=== PATIENT | female | born 1985 ===

== ENCOUNTER 2018-10-08 03:34 | Emergency (ER) | payer SELFPAY ==
[~2018-10-08] VITALS: Ht 149.9 cm; Wt 60.8 kg
--- OUTSIDE RECORDS SUMMARY | 2018-10-08 03:37 | XMS REPORT | Continuity of Care Document ---
Author Author [employer] Address Unknown Phone Unavailable Care Team Providers Care Switchboard Troubleshooter Name Role Phone [employer] Unavailable Unavailable Problems Problem Status Onset Date Classification Date Reported Comments Source premature rupture of membranes, unspecified as to length of time between rupture and onset of labor, third trimester 03/16/2018 09/21/2018 [facility] Resolved 02/28/2018 Problem 09/21/2018 [facility] SROM Active 02/28/2018 [facility] LABOR Active 03/02/2017 [facility] Atypical squamous cells of undetermined significance on Papanicolaou smear of cervix(Confirmed) Active Problem 07/12/[facility] Other infections with a predominantly sexual mode of transmission complicating childbirth 09/21/2018 [facility] Maternal care for transverse and oblique lie, not applicable or unspecified 09/21/2018 [facility] 34 weeks gestation of 09/21/2018 [facility] Single live 09/21/2018 [facility] Gestational diabetes mellitus in childbirth, unspecified control 09/21/2018 [facility] Anemia of the puerperium 09/21/2018 [facility] Papillomavirus as the cause of diseases classified elsewhere 09/21/2018 [facility] Anogenital warts 09/21/2018 [facility] Diseases of the digestive system complicating , third trimester 09/21/2018 [facility] Encounter for immunization 09/21/2018 [facility] Constipation, unspecified 09/21/2018 [facility] Diseases of the respiratory system complicating childbirth 09/21/2018 [facility] Allergic rhinitis, unspecified 09/21/2018 [facility] Family history of diabetes mellitus 09/21/2018 [facility] Allergic rhinitis Active Problem 09/21/2018 [facility] Anal warts Active Problem 09/21/2018 [facility] BMI 26.0-26.9,adult Active Problem 09/21/2018 [facility] Constipation Active Problem 09/21/2018 [facility] Gestational diabetes Resolved Problem 09/21/2018 [facility] 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 09/21/2018 [facility] rupture of membranes Active Problem 09/21/2018 [facility] Medications Medication Details Route Status Patient Instructions Ordering Provider Order Date Source Acetaminophen 300 MG / Codeine Phosphate 30 MG Oral Tablet 1 tab, PO, Q6H, PRN pain, X 5 day, # 20 tab, 0 Refill(s) No Longer Active 03/03/2018 [facility] ferrous sulfate 325 mg oral enteric coated tablet 325 mg=1 tab, PO, Daily, # 30 tab, 2 Refill(s) Active 03/03/2018 [facility] Docusate Sodium 100 MG Oral Capsule 100 mg=1 cap, PO, BID, PRN Constipation, # 60 cap, 1 Refill(s) Active 03/03/2018 [facility] ibuprofen 600 mg oral tablet 600 mg=1 tab, PO, Q6H, X 10 day, # 40 tab, 0 Refill(s) No Longer Active 03/03/2018 [facility] ferrous sulfate 325 mg, 1 tab, Route: PO, Drug form: ECTAB, Daily, Dosing Weight 64.091, kg, Start date: 03/02/18 9:00:00 HOUSING MANAGER, Duration: 30 day, Stop date: 03/31/18 9:00:00 CSTNotes: Give with food. "Do Not Crush" No Longer Active 03/02/2018 [facility] acetaminophen-hydrocodone 325 mg-5 mg oral tablet 1 tab, Route: PO, Drug Form: TAB, Dosing Weight 64.091, kg, Q4H, PRN Pain Score 4-6, Start date: 03/01/18 18:01:00 HOUSING MANAGER, Duration: 30 day, Stop date: 03/31/18 18:00:00 CSTNotes: (Same as: [place] 325/5) Do not exceed 4gm/day of acetaminophen. No Longer Active 03/02/2018 [facility] acetaminophen-hydrocodone 325 mg-10 mg oral tablet 1 tab, Route: PO, Drug Form: TAB, Dosing Weight 64.091, kg, Q4H, PRN Pain Score 7-10, Start date: 03/01/18 18:01:00 HOUSING MANAGER, Duration: 30 day, Stop date: 03/31/18 18:00:00 CSTNotes: Do not exceed 4gm/day of acetaminophen. (Same as: [place] 325/10) No Longer Active 03/02/2018 [facility] Tylenol 650 mg, 2 tab, Route: PO, Drug form: TAB, Q4H, Dosing Weight 64.091, kg, PRN Other -See Comment, Start date: 03/01/18 18:01:00 HOUSING MANAGER, Duration: 30 day, Stop date: 03/31/18 18:00:00 CSTNotes: Do not exceed 4 gm/day. (Same as: Tylenol) No Longer Active 03/02/2018 [facility] Multivitamins oral tablet 1 tab, Route: PO, Drug Form: TAB, Dosing Weight 64.091, kg, Daily, Start date: 03/01/18 9:00:00 HOUSING MANAGER, Duration: 30 day, Stop date: 03/30/18 9:00:00 HOUSING MANAGER No Longer Active 03/01/2018 [facility] Calcium Chloride 0.0014 MEQ/ML / Potassium Chloride 0.004 MEQ/ML / Sodium Chloride 0.103 MEQ/ML / Sodium Lactate 0.028 MEQ/ML Injectable Solution 500 mL, 500 ml/hr, Infuse Over: 1 hr, Route: IV, 500, Drug form: INJ, ONCE, Priority: STAT, Dosing Weight 64.091 kg, Start date: 03/01/18 1:44:00 HOUSING MANAGER, Stop date: 03/01/18 1:44:00 HOUSING MANAGER Inactive 03/01/2018 [facility] Saline Flush 0.9% 10 ml, Route: IVP, Drug Form: INJ, Dosing Weight 64.091, kg, Q12H, Start date: 02/28/18 21:00:00 HOUSING MANAGER, Duration: 30 day, Stop date: 03/30/18 9:00:00 CSTNotes: (Same as: [place] Posiflush) No Longer Active 03/01/2018 [facility] Meperidine 12.5 mg, 0.25 mL, Route: IVP, Drug form: INJ, ONCE, Dosing Weight 64.091, kg, Start date: 02/28/18 20:13:00 HOUSING MANAGER, Stop date: 02/28/18 20:13:00 CSTNotes: (Same as: Demerol) "Use Precaution in Elderly, Seizure disorders, and Renal impairment" No Longer Active 03/01/2018 [facility] Penicillin G 2,500,000 unit, 50 mL, Route: IVPB, Drug form: INJ, ABXQ4H, Dosing Weight 64.091, kg, Start date: 02/28/18 20:00:00 HOUSING MANAGER, Duration: 30 day, Stop date: 03/30/18 16:00:00 HOUSING MANAGER No Longer Active 03/01/2018 [facility] Ibuprofen 600 mg, 1 tab, Route: PO, Drug form: TAB, Q6Hnow, Dosing Weight 64.091, kg, Start date: 02/28/18 20:00:00 HOUSING MANAGER, Duration: 30 day, Stop date: 03/30/18 12:00:00 CSTNotes: (Same as: Motrin) "Do Not Crush" Take with food. No Longer Active 03/01/2018 [facility] Acetaminophen 325 MG / Hydrocodone Bitartrate 10 MG Oral Tablet 1 tab, Route: PO, Drug Form: TAB, Dosing Weight 64.091, kg, Q4H, PRN Pain Score 7-10, Start date: 02/28/18 19:31:00 HOUSING MANAGER, Duration: 30 day, Stop date: 03/30/18 19:30:00 CSTNotes: Do not exceed 4gm/day of acetaminophen. (Same as: [place] 325/10) Inactive 03/01/2018 [facility] Acetaminophen 325 MG / Hydrocodone Bitartrate 5 MG Oral Tablet 1 tab, Route: PO, Drug Form: TAB, Dosing Weight 64.091, kg, Q4H, PRN Pain Score 4-6, Start date: 02/28/18 19:31:00 HOUSING MANAGER, Duration: 30 day, Stop date: 03/30/18 19:30:00 CSTNotes: (Same as: [place] 325/5) Do not exceed 4gm/day of acetaminophen. Inactive 03/01/2018 [facility] Saline Flush 0.9% 10 ml, Route: IVP, Drug Form: INJ, Dosing Weight 64.091, kg, PRN, PRN Line Flush, Start date: 02/28/18 19:31:00 HOUSING MANAGER, Duration: 30 day, Stop date: 03/30/18 19:30:00 CSTNotes: (Same as: BD Posiflush) No Longer Active 03/01/2018 [facility] zolpidem 5 mg, 1 tab, Route: PO, Drug form: TAB, Bedtime, Dosing Weight 64.091, kg, PRN Insomnia, Start date: 02/28/18 19:31:00 HOUSING MANAGER, Duration: 30 day, Stop date: 03/30/18 19:30:00 CSTNotes: (Same As: Ambien) No Longer Active 03/01/2018 [facility] Docusate 100 mg, 1 cap, Route: PO, Drug form: CAP, BID, Dosing Weight 64.091, kg, PRN Constipation, Start date: 02/28/18 19:31:00 HOUSING MANAGER, Duration: 30 day, Stop date: 03/30/18 19:30:00 CSTNotes: (Same as: Colace) (Do Not Crush) No Longer Active 03/01/2018 [facility] Simethicone 160 mg, 2 tab, Route: PO, Drug form: CHEWTAB, Q8H, Dosing Weight 64.091, kg, PRN Gas, Start date: 02/28/18 19:31:00 HOUSING MANAGER, Duration: 30 day, Stop date: 03/30/18 19:30:00 CSTNotes: (Same as: Mylicon) No Longer Active 03/01/2018 [facility] lanolin topical cream 1 appl, Route: TOP, PRN, Drug form: OINT, PRN Other -See Comment, Start date: 02/28/18 19:31:00 HOUSING MANAGER, Duration: 30 day, Stop date: 03/30/18 19:30:00 HOUSING MANAGER No Longer Active 03/01/2018 [facility] Acetaminophen 650 mg, 2 tab, Route: PO, Drug form: TAB, Q4H, Dosing Weight 64.091, kg, PRN Other -See Comment, Start date: 02/28/18 19:31:00 HOUSING MANAGER, Duration: 30 day, Stop date: 03/30/18 19:30:00 CSTNotes: Do not exceed 4 gm/day. (Same as: Tylenol) Inactive 03/01/2018 [facility] Bisacodyl 15 mg, 3 tab, Route: PO, Drug form: ECTAB, Daily, Dosing Weight 64.091, kg, PRN Other -See Comment, Start date: 02/28/18 19:31:00 HOUSING MANAGER, Duration: 30 day, Stop date: 03/30/18 19:30:00 CSTNotes: (Same As: Dulcolax, Correctol) (Do Not Crush) "Do Not Crush" No Longer Active 03/01/2018 [facility] Oxytocin 30 unit, 500 mL, Rate: 42 ml/hr, Infuse over: 11.9 hr, Dosing Weight 64.091, kg, Route: IV, Total Volume: 500 mL, Start date: 02/28/18 19:31:00 HOUSING MANAGER, Duration: 2 day, Stop date: 03/02/18 19:30:00 HOUSING MANAGER, Replace Every: 11.9 hr No Longer Active 03/01/2018 [facility] Lactated Ringers IV 1,000 mL 1,000 mL, Rate: 100 ml/hr, Infuse over: 10 hr, Route: IV, Dosing Weight 64.091 kg, Total Volume: 1,000, Start date: 02/28/18 19:31:00 HOUSING MANAGER, Duration: 30 day, Stop date: 03/30/18 19:30:00 HOUSING MANAGER, 1.66, m2 No Longer Active 03/01/2018 [facility] azithromycin (ANES) Route: IV, Drug form: INJ, ONCE, Stop date: 02/28/18 19:14:00 HOUSING MANAGER Inactive 03/01/2018 [facility] acetaminophen (ANES) Route: IV, Drug form: INJ, ONCE, Stop date: 02/28/18 19:14:00 HOUSING MANAGER Inactive 03/01/2018 [facility] Pitocin (ANES) + sodium chloride (ANES) 9 mL Route: IVP, Drug form: INJ, ONCE, Stop date: 02/28/18 19:04:00 HOUSING MANAGER Inactive 03/01/2018 [facility] Naloxone 0.4 mg, 1 mL, Route: IVP, Drug form: INJ, ONCALL, Dosing Weight 64.091, kg, Start date: 02/28/18 19:00:00 HOUSING MANAGER, Duration: 24 hr, Stop date: 03/01/18 18:59:00 CSTNotes: Same as Narcan No Longer Active 03/01/2018 [facility] morphine Sulfate (ANES) Route: INTRATHECAL, Drug form: INJ, ONCE, Stop date: 02/28/18 18:49:00 HOUSING MANAGER Inactive 03/01/2018 [facility] fentaNYL (ANES) Route: INTRATHECAL, Drug form: INJ, ONCE, Stop date: 02/28/18 18:49:00 HOUSING MANAGER Inactive 03/01/2018 [facility] bupivacaine (ANES) Route: INTRATHECAL, Drug Form: INJ, ONCE, Stop date: 02/28/18 18:49:00 HOUSING MANAGER Inactive 03/01/2018 [facility] phenylephrine (ANES) Route: IV, Drug form: INJ, ONCE, Stop date: 02/28/18 18:34:00 HOUSING MANAGER Inactive 03/01/2018 [facility] ceFAZolin (ANES) Route: IV, Drug form: INJ, ONCE, Stop date: 02/28/18 18:34:00 HOUSING MANAGER Inactive 03/01/2018 [facility] Pitocin (ANES) 30 unit + Route: IVPB, Drug form: SOLN, Dosing Weight 64.1, kg, Start date: 02/28/18 18:28:00 HOUSING MANAGER, Stop date: 02/28/18 19:28:00 HOUSING MANAGER Inactive 03/01/2018 [facility] metoclopramide (ANES) Route: IV, Drug form: INJ, ONCE, Stop date: 02/28/18 18:14:00 HOUSING MANAGER Inactive 03/01/2018 [facility] famotidine (ANES) Route: IV, Drug form: INJ, ONCE, Stop date: 02/28/18 18:14:00 HOUSING MANAGER Inactive 03/01/2018 [facility] ondansetron (ANES) Route: IV, Drug form: INJ, ONCE, Stop date: 02/28/18 18:14:00 HOUSING MANAGER Inactive 03/01/2018 [facility] sodium citrate (ANES) Route: PO, Drug Form: INJ, ONCE, Stop date: 02/28/18 18:14:00 HOUSING MANAGER Inactive 03/01/2018 [facility] Oxycodone Hydrochloride 5 MG Oral Tablet 5 mg, 1 tab, Route: PO, Drug form: TAB, Q4H, Dosing Weight 64.091, kg, PRN Pain Score 4-6, Start date: 02/28/18 18:09:00 HOUSING MANAGER, Duration: 30 day, Stop date: 03/30/18 18:08:00 CSTNotes: (Same as: Roxicodone) No Longer Active 03/01/2018 [facility] Acetaminophen 1,000 mg, 2 tab, Route: PO, Drug form: TAB, Q6H, Dosing Weight 64.091, kg, Priority: NOW, Start date: 02/28/18 18:09:00 HOUSING MANAGER, Duration: 24 hr, Stop date: 03/01/18 18:00:00 CSTNotes: Max acetaminophen 4000 mg/day (4 gm/day). (Same as: Tylenol Extra Strength) No Longer Active 03/01/2018 [facility] Ketorolac 30 mg, 1 mL, Route: IVP, Drug form: INJ, Q6H, Dosing Weight 64.091, kg, PRN Pain Score 4-6, Start date: 02/28/18 18:09:00 HOUSING MANAGER, Duration: 24 hr, Stop date: 03/01/18 18:08:00 CSTNotes: (Same as:Toradol) IV bolus must be given >15 seconds. Give IM administration slowly and deeply into the muscle. Not for use > 4 days MEDICATION WASTE Product Size: 30 mg Product Wasted: ___ mg No Longer Active 03/01/2018 [facility] Diphenhydramine 12.5 mg, 5 mL, Route: PO, Drug form: LIQ, Q6H, Dosing Weight 64.091, kg, PRN Itching, Start date: 02/28/18 18:09:00 HOUSING MANAGER, Duration: 30 day, Stop date: 03/30/18 18:08:00 CSTNotes: (Same as: Benadryl) No Longer Active 03/01/2018 [facility] Promethazine 6.25 mg, 0.25 mL, Route: IVPB, Drug form: INJ, Q6H, Dosing Weight 64.091, kg, PRN Nausea & Vomiting, Start date: 02/28/18 18:09:00 HOUSING MANAGER, Duration: 24 hr, Stop date: 03/01/18 18:08:00 CSTNotes: Do not give IV push. (Same as: Phenergan) No Longer Active 03/01/2018 [facility] Hydromorphone 0.3 mg, 0.15 mL, Route: IVP, Drug form: INJ, Q4H, Dosing Weight 64.091, kg, PRN Pain Score 7-10, Start date: 02/28/18 18:09:00 HOUSING MANAGER, Duration: 30 day, Stop date: 03/30/18 18:08:00 CSTNotes: Same as Dilaudid No Longer Active 03/01/2018 [facility] Ondansetron 4 mg, 2 mL, Route: IVP, Drug form: INJ, Q6H, Dosing Weight 64.091, kg, PRN Nausea & Vomiting, Start date: 02/28/18 18:09:00 HOUSING MANAGER, Duration: 24 hr, Stop date: 03/01/18 18:08:00 CSTNotes: (Same as: Zofran) MEDICATION WASTE Product Size: 4 mg Product Wasted: ___ mg No Longer Active 03/01/2018 [facility] Lactated Ringers Injection IV (ANES) 1000 mL Route: IV, Total Volume: 1,000, Start date: 02/28/18 17:19:00 HOUSING MANAGER, Stop date: 02/28/18 18:19:00 HOUSING MANAGER Inactive 02/28/2018 [facility] Penicillin G Potassium 9160072 UNT/ML Injectable Solution 5,000,000 unit, Route: IVPB, Drug form: PDR/INJ, ONCALL, Dosing Weight 64.091, kg, Start date: 02/28/18 16:00:00 HOUSING MANAGER, Duration: 30 day, Stop date: 03/30/18 15:59:00 CSTNotes: (Same as: Pfizerpen) MEDICATION WASTE Product Size: 5,000,000 unit Product Wasted: ___ unit Inactive 02/28/2018 [facility] Cefazolin 2 gm, 20 mL, Route: IVPB, Drug form: SOLN, ONCALL, Dosing Weight 64.091, kg, Start date: 02/28/18 16:00:00 HOUSING MANAGER, Duration: 1 doses or times, Stop date: 03/01/18 0:00:00 HOUSING MANAGER, ABX Indication: Surgical P rophylaxisNotes: (Same as Ancef) Inactive 02/28/2018 [facility] Carboprost 250 microgram, 1 mL, Route: IM, Drug form: INJ, ONCALL, Dosing Weight 64.091, kg, Start date: 02/28/18 16:00:00 HOUSING MANAGER, Duration: 30 day, Stop date: 03/30/18 15:59:00 CSTNotes: (Same As: Hemabate) Inactive 02/28/2018 [facility] Misoprostol 1,000 microgram, 5 tab, Route: OR, Drug form: TAB, ONCALL, Dosing Weight 64.091, kg, Start date: 02/28/18 16:00:00 HOUSING MANAGER, Duration: 30 day, Stop date: 03/30/18 15:59:00 CSTNotes: (Same as:Cytotec) Ta ke with food Inactive 02/28/2018 [facility] Methylergonovine 0.2 mg, 1 mL, Route: IM, Drug form: INJ, ONCALL, Dosing Weight 64.091, kg, Start date: 02/28/18 16:00:00 HOUSING MANAGER, Duration: 30 day, Stop date: 03/30/18 15:59:00 CSTNotes: (Same as:Methergine) Inactive 02/28/2018 [facility] Celestone 12 mg, 2 mL, Route: IM, Drug form: INJ, ONCE, Dosing Weight 64.091, kg, Start date: 02/28/18 15:03:00 HOUSING MANAGER, Stop date: 02/28/18 15:03:00 CSTNotes: (betamethasone acetate-sodium phosphate 6 mg/ml INJ) (Same As: Celestone Soluspan) No Longer Active 02/28/2018 [facility] Morphine 2 mg, 0.5 mL, Route: IVP, Drug form: SOLN, Q2H, Dosing Weight 64.091, kg, PRN Pain Score 7-10, Start date: 02/28/18 15:01:00 HOUSING MANAGER, Duration: 30 day, Stop date: 03/30/18 15:00:00 CSTNotes: (Same as:MORPhine Sulfate) Inactive 02/28/2018 [facility] Ondansetron 4 mg, 2 mL, Route: IVP, Drug form: INJ, Q8H, Dosing Weight 64.091, kg, PRN Nausea & Vomiting, Start date: 02/28/18 15:01:00 HOUSING MANAGER, Duration: 30 day, Stop date: 03/30/18 15:00:00 CSTNotes: (Same as: Ethel) MEDICATION WASTE Product Size: 4 mg Product Wasted: ___ mg Inactive 02/28/2018 [facility] Terbutaline 0.25 mg, 0.25 mL, Route: SUB-Q, Drug form: INJ, ONCALL, Dosing Weight 64.091, kg, PRN Other -See Comment, Start date: 02/28/18 15:01:00 HOUSING MANAGER, Duration: 1 doses or times, Stop date: 03/01/18 0:00:00 CSTNotes: DO NOT USE IN TYPING SECRETARY AREA (Same As: Shira) Inactive 02/28/2018 [facility] Oxytocin 30 unit, 500 mL, Rate: 42 ml/hr, Infuse over: 11.9 hr, Dosing Weight 64.091, kg, Route: IV, Total Volume: 500 mL, Start date: 02/28/18 15:01:00 HOUSING MANAGER, Duration: 1 doses or times, Stop date: 03/01/18 2:54:00 HOUSING MANAGER, Replace Every: 11.9 hr Inactive 02/28/2018 [facility] Metoclopramide 10 mg, 2 mL, Route: IVP, Drug form: INJ, Q6H, Dosing Weight 64.091, kg, PRN Nausea & Vomiting, Start date: 02/28/18 15:01:00 HOUSING MANAGER, Duration: 30 day, Stop date: 03/30/18 15:00:00 CSTNotes: (Same as: Reglan) Inactive 02/28/2018 [facility] Citric Acid / sodium citrate 30 mL, Route: PO, Drug Form: SOLN, Dosing Weight 64.091, kg, ONCE, Start date: 02/28/18 15:01:00 HOUSING MANAGER, Stop date: 02/28/18 15:01:00 CSTNotes: (Same As: Clara Finkra-2) Sodium citrate- citric acid (500-334 mg/5 mL): 1 mL contains sodium 1 mEq/mL and bicarbonate 1 mEq/mL Inactive 02/28/2018 [facility] Calcium Chloride 0.0014 MEQ/ML / Potassium Chloride 0.004 MEQ/ML / Sodium Chloride 0.103 MEQ/ML / Sodium Lactate 0.028 MEQ/ML Injectable Solution 1,000 mL, Rate: 125 ml/hr, Infuse over: 8 hr, Route: IV, Dosing Weight 64.091 kg, Total Volume: 1,000, Start date: 02/28/18 15:01:00 HOUSING MANAGER, Duration: 30 day, Stop date: 03/30/18 15:00:00 HOUSING MANAGER, 1.66, m2 Inactive 02/28/2018 [facility] Metformin PO, 0 Refill(s) No Longer Active 02/28/2018 [facility] omeprazole 20 mg oral delayed release capsule 20 mg=1 cap, PO, Daily, # 30 cap, 1 Refill(s), Pharmacy: [facility], dispense 40 mg if that's what covered Active 07/24/2017 [facility] albuterol 90 mcg/inh inhalation aerosol 2 puff, INHALATION, QID, # 1 ea, 2 Refill(s), Pharmacy: [facility], dispense covered brand Active 07/24/2017 [facility] 168 HR Ethinyl Estradiol 0.52844 MG/HR / norelgestromin 0.49903 MG/HR Transdermal Patch [Xulane] See Instructions, apply a new patch weekly for 3 weeks, remove for 1 week, then repeat cycle, # 3 ea, 3 Refill(s), Pharmacy: [facility] Active 07/08/2017 [facility] Allergies, Adverse Reactions, Alerts Substance Category Reaction Severity Reaction type Status Date Reported Comments Source No Known Medication Allergies Assertion Drug allergy [facility] Immunizations Immunization Date Given Site Status Last Updated Comments Source diphtheria/pertussis, acel/tetanus adult 03/02/2018 Right deltoid completed Jeffrey [facility] Results Order Name Results Value Reference Range Date Interpretation Comments Source HEMATOLOGY Hgb 9.9 12.0 - 16.0 03/01/2018 [facility] HEMATOLOGY Hct 28.7 36.0 - 48.0 03/01/2018 [facility] BLOOD BANK RESULTS ABO/Rh O POS 02/28/2018 [facility] BLOOD BANK RESULTS Antibody Scrn Negative (02/28/18 3:13 PM) 02/28/2018 [facility] HEMATOLOGY Eosinophils 0.4 0.0 - 4.0 02/28/2018 [facility] HEMATOLOGY Basophils 0.3 0.0 - 1.0 02/28/2018 [facility] HEMATOLOGY Lymphocytes 23.4 20.0 - 40.0 02/28/2018 [facility] HEMATOLOGY Segs 67.1 45.0 - 75.0 02/28/2018 [facility] HEMATOLOGY Monocytes 8.8 2.0 - 12.0 02/28/2018 [facility] HEMATOLOGY Monocytes # 0.8 0.0 - 0.8 02/28/2018 [facility] HEMATOLOGY Lymphocytes # 2.1 1.0 - 5.5 02/28/2018 [facility] HEMATOLOGY Neutrophils # 6.1 1.5 - 8.1 02/28/2018 [facility] HEMATOLOGY MPV 9.3 7.4 - 10.4 02/28/2018 [facility] HEMATOLOGY MCV 91.6 80.0 - 98.0 02/28/2018 [facility] HEMATOLOGY Platelet 237 133 - 450 02/28/2018 [facility] HEMATOLOGY MCHC 34.2 32.0 - 36.0 02/28/2018 [facility] HEMATOLOGY MCH 31.4 27.0 - 31.0 02/28/2018 [facility] HEMATOLOGY Hct 34.2 36.0 - 48.0 02/28/2018 [facility] HEMATOLOGY Hgb 11.7 12.0 - 16.0 02/28/2018 [facility] HEMATOLOGY WBC 9.1 3.7 - 10.4 02/28/2018 [facility] HEMATOLOGY RBC 3.74 4.20 - 5.40 02/28/2018 [facility] HEMATOLOGY RDW 13.1 11.5 - 14.5 02/28/2018 [facility] IMMUNOLOGY Hep Bs Ag Negative *NA* (02/28/18 3:13 PM) Negative 02/28/2018 [facility] IMMUNOLOGY HIV. Negative *NA* (02/28/18 3:13 PM) Negative 02/28/2018 [facility] IMMUNOLOGY Treponemal Ab Non-Reactive *NA* (02/28/18 3:13 PM) Non 02/28/2018 [facility] Pathology Reports No Data Provided for This Section Diagnostic Reports No Data Provided for This Section Consultation Notes No Data Provided for This Section Discharge Summaries No Data Provided for This Section History and Physicals No Data Provided for This Section Vital Signs Vital Sign Value Date Comments Source Systolic (mm Hg) 102 03/04/2018 [facility] Diastolic (mm Hg) 68 03/04/2018 [facility] Heart Rate 93 03/04/2018 [facility] Respitory Rate 18 03/04/2018 [facility] Temperature Oral (F) 98.2 F 03/04/2018 [facility] Heart Rate 96 03/04/2018 [facility] Respitory Rate 20 03/04/2018 [facility] Systolic (mm Hg) 114 03/04/2018 [facility] Diastolic (mm Hg) 73 03/04/2018 [facility] Temperature Oral (F) 99.3 F 03/04/2018 [facility] Systolic (mm Hg) 108 03/03/2018 [facility] Diastolic (mm Hg) 70 03/03/2018 [facility] Temperature Oral (F) 98.3 F 03/03/2018 [facility] Heart Rate 88 03/03/2018 [facility] Respitory Rate 18 03/03/2018 [facility] Height 149.86 cm 02/28/2018 [facility] Weight 64.091 02/28/2018 [facility] BMI Calculated 28.54 02/28/2018 [facility] BMI Calculated 28.54 02/28/2018 [facility] Height 149.86 cm 02/28/2018 [facility] Weight 64.091 02/28/2018 [facility] Weight 62.273 07/24/2017 [facility] BMI Calculated 27.73 07/24/2017 [facility] Systolic (mm Hg) 117 07/24/2017 [facility] Diastolic (mm Hg) 77 07/24/2017 [facility] Heart Rate 98 07/24/2017 [facility] Respitory Rate 14 07/24/2017 [facility] Temperature Oral (F) 98.0 F 07/24/2017 [facility] Height 149.86 cm 07/24/2017 [facility] Encounters Location Location Details Encounter Type Encounter Number Reason For Visit Attending Provider ADM Date DC Date Status Source Outpatient [id number] CULLEN SHAH 08/15/2016 Active [facility] Outpatient [id number] CULLEN SHAH 09/11/2016 Active [facility] Outpatient [id number] CULLEN SHAH 10/06/2016 Active [facility] Outpatient [id number] CULLEN CASTILLOH 12/19/2016 [facility] Phone Message [id number] 07/08/2017 07/10/2017 [facility] Outpatient [id number] CULLEN CASTILLOH 07/24/2017 [facility] Outpatient [id number] Cullen Castilloh 07/24/2017 07/25/2017 [facility] Inpatient [id number] Cora Crisostomo 02/28/2018 03/04/2018 [facility] Procedures Procedure Code Date Perfomer Comments Source Cervical cytology screening [id number] 11/01/2015 [facility] Cervical cytology screening [id number] 11/01/2015 [facility] Assessment and Plan Assessment and Plan Date Source Extracted from:Title: OB Progress Note Author: Jeanine Hodges MD Date: 03/04/18 Impression and Plan Diagnosis Transverse or oblique presentation, delivered (FGX97-HL O32.2XX0, Working, Medical). premature rupture of membranes (PPROM) delivered, current hospitalization (USJ47-SW O42.919, Working, Medical). Diabetes mellitus, gestational (CWY33-TQ O24.419, Working, Medical). Delivery by section for breech presentation (WFD66-KG O32.1XX0, Working, Medical). 34 weeks gestation of (NUU88-UY Z3A.34, Working, Medical). Condition: Stable. Plan 1. /postop state: - Continue routine /postop care - Encourage breast feed/pump Q2-3 hours - continue regular diet, PO pain meds today - encourage ambulation 2. Anemia - continue PO iron with stool softener 3. A2DM - 2hr GTT at 6-8 weeks Discharge to home today, follow up in office in 1-2 weeks. Extracted from:Title: OB C/S Delivery Procedure Summary transverse, atony Author: Aminata Wright MD Date: 02/28/18 Impression and Plan Diagnosis Transverse or oblique presentation, delivered (XTF47-PV O32.2XX0, Working, Medical). premature rupture of membranes (PPROM) delivered, current hospitalization (RVV44-WH O42.919, Working, Medical). 34 weeks gestation of (GTE06-AY Z3A.34, Working, Medical). Diabetes mellitus, gestational (KXG75-HN O24.419, Working, Medical). Delivery by section for breech presentation (QFL28-SD O32.1XX0, Working, Medical). disposition: Well baby nursery. Maternal condition: Stable. Course: Progressing as expected. 03/04/2018 [facility] Plan of Care No Data Provided for This Section Social History Social History Date Source Social History TypeResponse Substance Abuse Use: None. Sexual Sexually active: Yes. Exercise Exercise duration: 0. Employment/School Status: Employed. 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 Employment/School Status: Employed. 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 Alcohol Current, Frequency: 1-2 times per month. Smoking Status Never smoker; Exposure to Tobacco Smoke None; Cigarette Smoking Last 365 Days No; Reg Smoking Cessation Counseling No entered on: 07/24/17 12/19/2016 [facility] Family History No Data Provided for This Section Advance Directives No Data Provided for This Section Functional Status No Data Provided for This Section
--- OUTSIDE RECORDS SUMMARY | 2018-10-08 03:37 | XMS REPORT | Summary of Care ---
Author Author [facility] Primary Care [facility] Organization [facility] Address Unknown Phone Unavailable Encounter HQ Edwinntr_beto(FIN) [id number] Date(s): 07/08/17 - 07/09/17 [facility] [address], [address] [place] [address]- [phone] Vital Signs No data available for this section Problem List Condition Effective Dates Status Health Status Informant Allergic Active rhinitis(Confirmed) Anal Active warts(Confirmed) Atypical squamous Active cells of undetermined significance (ASCUS) on Papanicolaou smear of cervix(Confirmed) BMI Active 26.0-26.9,adult(Conf irmed) Constipation(Confirm Active ed) 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) Allergies, Adverse Reactions, Alerts Substance Reaction Severity Status NKDA Active Medications Xulane 150 mcg-35 mcg/24 hr transdermal film, extended release See Instructions, apply a new patch weekly for 3 weeks, remove for 1 week, then repeat cycle, # 3 ea, 3 Refill(s), Pharmacy: [facility] Start Date: 07/08/17 Status: Ordered Results No data available for this section Immunizations No data available for this section Procedures Procedure Date Related Diagnosis Body Site Status Cervical cytology screening 11/2015 Completed Social History Social History Type Response Exercise Exercise duration: 0. Employment/School Status: Employed. 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 Alcohol Current, Frequency: 1-2 times per month. Smoking Status Never smoker; Exposure to Tobacco Smoke None; Cigarette Smoking Last 365 Days No; Reg Smoking Cessation Counseling No entered on: 12/19/16 Assessment and Plan No data available for this section
--- OUTSIDE RECORDS SUMMARY | 2018-10-08 03:37 | XMS REPORT | Summary of Care ---
Author Author [facility] Primary Care [facility] Organization [facility] Address Unknown Phone Unavailable Encounter HQ Edwinntr_beto(FIN) [id number] Date(s): 07/08/17 - 07/09/17 [facility] [address], [address] [place] [address]- [phone] Vital Signs No data available for this [...] duration: 0. Employment/School Status: Employed. 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 Alcohol Current, Frequency: 1-2 times per month. Smoking Status Never smoker; Exposure to Tobacco Smoke None; Cigarette Smoking Last 365 Days No; Reg Smoking Cessation Counseling No entered on: 12/19/16 Assessment and Plan No data available for this section
--- OUTSIDE RECORDS SUMMARY | 2018-10-08 03:37 | XMS REPORT | Summary of Care ---
Author Author [facility] Organization [facility] Address Unknown Phone Unavailable Encounter KENDY Rasmussen(KACEY) [id number] Date(s): 07/24/17 - 07/24/17 [facility] [address], [address] [place] [address]- [phone] Discharge Disposition: Home or Self Care Attending Physician: Berta Guevara DO Vital Signs Most recent to 1 oldest [Reference Range]: Height 149.86 cm (07/24/17 4:32 PM) Temperature Oral 98.0 DegF [96.4-99.1 DegF] (07/24/17 4:32 PM) Blood Pressure 117/77 mmHg [90-140/60-90 mmHg] (07/24/17 4:32 PM) Respiratory Rate 14 BRMIN [14-20 BRMIN] (07/24/17 4:32 PM) Peripheral Pulse 98 bpm Rate [60-100 bpm] (07/24/17 4:32 PM) Weight 62.273 kg (07/24/17 4:32 PM) Body Mass Index 27.73 m2 (07/24/17 4:32 PM) Problem List Condition Effective Dates Status Health Status Informant Allergic Active rhinitis(Confirmed) Anal Active warts(Confirmed) BMI Active 26.0-26.9,adult(Conf irmed) Constipation(Confirm Active ed) 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) Allergies, Adverse Reactions, Alerts Substance Reaction Severity Status NKDA Active Medications albuterol 90 mcg/inh inhalation aerosol 2 puff, INHALATION, QID, # 1 ea, 2 Refill(s), Pharmacy: [facility] ruben Kay ispense covered brand Start Date: 07/24/17 Status: Ordered omeprazole 20 mg oral delayed release capsule 20 mg=1 cap, PO, Daily, # 30 cap, 1 Refill(s), Pharmacy: [facility] Rahul, dispense 40 mg if that's what covered Start Date: 07/24/17 Status: Ordered Results No data available for this section Immunizations No data available for this section Procedures Procedure Date Related Diagnosis Body Site Status Cervical cytology screening 11/2015 Completed Social History Social History Type Response Exercise Exercise duration: 0. Employment/School Status: Employed. 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 Alcohol Current, Frequency: 1-2 times per month. Smoking Status Never smoker; Exposure to Tobacco Smoke None; Cigarette Smoking Last 365 Days No; Reg Smoking Cessation Counseling No entered on: 07/24/17 Assessment and Plan No data available for this section
--- OUTSIDE RECORDS SUMMARY | 2018-10-08 03:37 | XMS REPORT | Summary of Care ---
Author Author [facility] Organization [facility] Address Unknown Phone Unavailable Encounter KENDY Tong) [phone] Date(s): 02/28/18 - 03/04/18 [facility] [address] [facility] provided by [facility] [place] [address]- Encounter Diagnosis premature rupture of membranes, unspecified as to length of time between rupture and onset of labor, third trimester (Final) - 03/15/18 Other infections with a predominantly sexual mode of transmission complicating c [place] (Final) - Maternal care for transverse and oblique lie, not applicable or unspecified (Final) - 34 weeks gestation of (Final) - Single live (Final) - Gestational diabetes mellitus in childbirth, unspecified control (Final) - Anemia of the puerperium (Final) - Papillomavirus as the cause of diseases classified elsewhere (Final) - Anogenital (venereal) warts (Final) - Diseases of the digestive system complicating , third trimester (Final) - Encounter for immunization (Final) - Constipation, unspecified (Final) - Diseases of the respiratory system complicating childbirth (Final) - Allergic rhinitis, unspecified (Final) - Family history of diabetes mellitus (Final) - Discharge Disposition: Home or Self Care Attending Physician: Cora Crisosotmo MD Admitting Physician: Cora Crisostomo MD Vital Signs 1 2 3 Most recent to oldest [Reference Range]: 149.86 cm (02/28/18 4:58 PM) 149.86 cm (02/28/18 1:43 PM) Height 98.2 DegF (03/04/18 8:10 AM) 99.3 DegF *HI* (03/03/18 11:31 PM) 98.3 DegF (03/03/18 4:04 PM) Temperature Oral [96.4-99.1 DegF] 102/68 mmHg (03/04/18 8:10 AM) 114/73 mmHg (03/03/18 11:31 PM) 108/70 mmHg (03/03/18 4:04 PM) Blood Pressure [90-140/60-90 mmHg] 18 BRMIN (03/04/18 8:10 AM) 20 BRMIN (03/03/18 11:31 PM) 18 BRMIN (03/03/18 4:04 PM) Respiratory Rate [14-20 BRMIN] 93 bpm (03/04/18 8:10 AM) 96 bpm (03/03/18 11:31 PM) 88 bpm (03/03/18 4:04 PM) Peripheral Pulse Rate [60-100 bpm] 64.091 kg (02/28/18 4:58 PM) 64.091 kg (02/28/18 1:43 PM) Weight 28.54 m2 (02/28/18 4:58 PM) 28.54 m2 (02/28/18 1:43 PM) Body Mass Index Problem List Condition Effective Dates Status Health Status Informant Allergic Active rhinitis(Confirmed) Anal Active warts(Confirmed) BMI Active 26.0-26.9,adult(Conf irmed) Constipation(Confirm Active ed) Gestational Resolved diabetes(Confirmed) 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 (Same as: Tylenol Extra Streng th) Start Date: 02/28/18 Stop Date: 03/01/18 Status: Completed acetaminophen 650 mg, 2 tab, Route: PO, Drug form: TAB, Q4H, Dosing Weight 64.091, kg, PRN Oth er -See Comment, Start date: 02/28/18 19:31:00 NURSE INTERN, Duration: 30 day, Stop date: 03/30/18 19:30:00 NURSE INTERN Notes: Do not exceed 4 gm/day. (Same as: Tylenol) Start Date: 02/28/18 Stop Date: 02/28/18 Status: Discontinued acetaminophen (ANES) Route: IV, Drug form: INJ, ONCE, Stop date: 02/28/18 19:14:00 NURSE INTERN Start Date: 02/28/18 Stop Date: 02/28/18 Status: Completed acetaminophen-codeine 300 mg-30 mg oral tablet 1 tab, PO, Q6H, PRN pain, X 5 day, # 20 tab, 0 Refill(s) Start Date: 03/03/18 Stop Date: 03/08/18 Status: Completed acetaminophen-hydrocodone 325 mg-10 mg oral tablet 1 tab, Route: PO, Drug Form: TAB, Dosing Weight 64.091, kg, Q4H, PRN Pain Score 7-10, Start date: 03/01/18 18:01:00 NURSE INTERN, Duration: 30 day, Stop date: 03/31/18 1 8:00:00 NURSE INTERN Notes: Do not exceed 4gm/day of acetaminophen. (Same as: [place] 325/10) Start Date: 03/01/18 Stop Date: 03/04/18 Status: Discontinued acetaminophen-hydrocodone 325 mg-10 mg oral tablet 1 tab, Route: PO, Drug Form: TAB, Dosing Weight 64.091, kg, Q4H, PRN Pain Score 7-10, Start date: 02/28/18 19:31:00 NURSE INTERN, Duration: 30 day, Stop date: 03/30/18 1 9:30:00 NURSE INTERN Notes: Do not exceed 4gm/day of acetaminophen. (Same as: [place] 325/10) Start Date: 02/28/18 Stop Date: 02/28/18 Status: Discontinued acetaminophen-hydrocodone 325 mg-5 mg oral tablet 1 tab, Route: PO, Drug Form: TAB, Dosing Weight 64.091, kg, Q4H, PRN Pain Score 4-6, Start date: 03/01/18 18:01:00 NURSE INTERN, Duration: 30 day, Stop date: 03/31/18 18 :00:00 NURSE INTERN Notes: (Same as: [place] 325/5) Do not exceed 4gm/day of acetaminophen. Start Date: 03/01/18 Stop Date: 03/04/18 Status: Discontinued acetaminophen-hydrocodone 325 mg-5 mg oral tablet 1 tab, Route: PO, Drug Form: TAB, Dosing Weight 64.091, kg, Q4H, PRN Pain Score 4-6, Start date: 02/28/18 19:31:00 NURSE INTERN, Duration: 30 day, Stop date: 03/30/18 19 :30:00 NURSE INTERN Notes: (Same as: [place] 325/5) Do not exceed 4gm/day of acetaminophen. Start Date: 02/28/18 Stop Date: 02/28/18 Status: Discontinued azithromycin (ANES) Route: IV, Drug form: INJ, ONCE, Stop date: 02/28/18 19:14:00 NURSE INTERN Start Date: 02/28/18 Stop Date: 02/28/18 Status: Completed bisacodyl 15 mg, 3 tab, Route: PO, Drug form: ECTAB, Daily, Dosing Weight 64.091, kg, PRN Other -See Comment, Start date: 02/28/18 19:31:00 NURSE INTERN, Duration: 30 day, Stop da te: 03/30/18 19:30:00 NURSE INTERN Notes: (Same As: Dulcolax, Correctol) (Do Not Crush) "Do Not Crush" Start Date: 02/28/18 Stop Date: 03/04/18 Status: Discontinued bisacodyl 10 mg, 1 supp, Route: NY, Drug form: SUPP, PRN, Dosing Weight 64.091, kg, PRN Ot her -See Comment, Start date: 02/28/18 19:31:00 NURSE INTERN, Duration: 30 day, Stop date : 03/30/18 19:30:00 NURSE INTERN Notes: (Same As: Dulcolax, [place]-Lax) Start Date: 02/28/18 Stop Date: 03/04/18 Status: Discontinued bupivacaine (ANES) Route: INTRATHECAL, Drug Form: INJ, ONCE, Stop date: 02/28/18 18:49:00 NURSE INTERN Start Date: 02/28/18 Stop Date: 02/28/18 Status: Completed carboprost 250 microgram, 1 mL, Route: IM, Drug form: INJ, ONCALL, Dosing Weight 64.091, kg , Start date: 02/28/18 16:00:00 NURSE INTERN, Duration: 30 day, Stop date: 03/30/18 15:59 :00 NURSE INTERN Notes: (Same As: Hemabate) Start Date: 02/28/18 Stop Date: 02/28/18 Status: Discontinued ceFAZolin 2 gm, 20 mL, Route: IVPB, Drug form: SOLN, ONCALL, Dosing Weight 64.091, kg, Sta rt date: 02/28/18 16:00:00 NURSE INTERN, Duration: 1 doses or times, Stop date: 03/01/18 0:00:00 NURSE INTERN, ABX Indication: Surgical Prophylaxis Notes: (Same as Ancef) Start Date: 02/28/18 Stop Date: 02/28/18 Status: Discontinued ceFAZolin (ANES) Route: IV, Drug form: INJ, ONCE, Stop date: 02/28/18 18:34:00 NURSE INTERN Start Date: 02/28/18 Stop Date: 02/28/18 Status: Completed Celestone 12 mg, 2 mL, Route: IM, Drug form: INJ, ONCE, Dosing Weight 64.091, kg, Start da te: 02/28/18 15:03:00 NURSE INTERN, Stop date: 02/28/18 15:03:00 NURSE INTERN Notes: (betamethasone acetate-sodium phosphate 6 mg/ml INJ) (Same As: Celestone Soluspan) Start Date: 02/28/18 Stop Date: 03/08/18 Status: Discontinued citric acid-sodium citrate 30 mL, Route: PO, Drug Form: SOLN, Dosing Weight 64.091, kg, ONCE, Start date: 15:01:00 NURSE INTERN, Stop date: 02/28/18 15:01:00 NURSE INTERN Notes: (Same As: Bicitra, Cytra-2) Sodium citrate-citric acid (500-334 mg/5 mL): 1 mL contains sodium 1 mEq/mL and bicarbonate 1 mEq/mL Start Date: 02/28/18 Stop Date: 02/28/18 Status: Discontinued diphenhydrAMINE 12.5 mg, 5 mL, Route: PO, Drug form: LIQ, Q6H, Dosing Weight 64.091, kg, PRN Itc zhou, Start date: 02/28/18 18:09:00 NURSE INTERN, Duration: 30 day, Stop date: 03/30/18 1 8:08:00 NURSE INTERN Notes: (Same as: Benadryl) Start Date: 02/28/18 Stop Date: 03/04/18 Status: Discontinued docusate 100 mg, 1 cap, Route: PO, Drug form: CAP, BID, Dosing Weight 64.091, kg, PRN Con stipation, Start date: 02/28/18 19:31:00 NURSE INTERN, Duration: 30 day, Stop date: 03/30 19:30:00 NURSE INTERN Notes: (Same as: Colace) (Do Not Crush) Start Date: 02/28/18 Stop Date: 03/04/18 Status: Discontinued docusate sodium 100 mg oral capsule 100 mg=1 cap, PO, BID, PRN Constipation, # 60 cap, 1 Refill(s) Start Date: 03/03/18 Stop Date: 05/02/18 Status: Ordered famotidine (ANES) Route: IV, Drug form: INJ, ONCE, Stop date: 02/28/18 18:14:00 NURSE INTERN Start Date: 02/28/18 Stop Date: 02/28/18 Status: Completed fentaNYL (ANES) Route: INTRATHECAL, Drug form: INJ, ONCE, Stop date: 02/28/18 18:49:00 NURSE INTERN Start Date: 02/28/18 Stop Date: 02/28/18 Status: Completed ferrous sulfate 325 mg, 1 tab, Route: PO, Drug form: ECTAB, Daily, Dosing Weight 64.091, kg, Sta rt date: 03/02/18 9:00:00 NURSE INTERN, Duration: 30 day, Stop date: 03/31/18 9:00:00 NURSE INTERN Notes: Give with food. "Do Not Crush" Start Date: 03/02/18 Stop Date: 03/04/18 Status: Discontinued ferrous sulfate 325 mg oral enteric coated tablet 325 mg=1 tab, PO, Daily, # 30 tab, 2 Refill(s) Start Date: 03/03/18 Stop Date: 06/01/18 Status: Ordered hydromorphone 0.3 mg, 0.15 mL, Route: IVP, Drug form: INJ, Q4H, Dosing Weight 64.091, kg, PRN Pain Score 7-10, Start date: 02/28/18 18:09:00 NURSE INTERN, Duration: 30 day, Stop date: 03/30/18 18:08:00 NURSE INTERN Notes: Same as Dilaudid Start Date: 02/28/18 Stop Date: 03/04/18 Status: Discontinued ibuprofen 600 mg, 1 tab, Route: PO, Drug form: TAB, Q6Hnow, Dosing Weight 64.091, kg, Star t date: 02/28/18 20:00:00 NURSE INTERN, Duration: 30 day, Stop date: 03/30/18 12:00:00 CS T Notes: (Same as: Motrin)"Do Not Crush" Take with food. Start Date: 02/28/18 Stop Date: 03/04/18 Status: Discontinued ibuprofen 600 mg oral tablet 600 mg=1 tab, PO, Q6H, X 10 day, # 40 tab, 0 Refill(s) Start Date: 03/03/18 Stop Date: 03/13/18 Status: Completed ketOROLAC 30 mg, 1 mL, Route: IVP, Drug form: INJ, Q6H, Dosing Weight 64.091, kg, PRN Pain Score 4-6, Start date: 02/28/18 18:09:00 NURSE INTERN, Duration: 24 hr, Stop date: 03/01 18:08:00 NURSE INTERN Notes: (Same as:Toradol) IV bolus must be given >15 seconds. Give IM administration slowly and deeply into the muscle.Not for use > 4 days MEDICATION WASTE Product Size: 30 mgProduct Wasted: ___ mg Start Date: 02/28/18 Stop Date: 03/01/18 Status: Completed Lactated Ringers (Bolus) IV 500 mL, 500 ml/hr, Infuse Over: 1 hr, Route: IV, 500, Drug form: INJ, ONCE, Prio rity: STAT, Dosing Weight 64.091 kg, Start date: 03/01/18 1:44:00 NURSE INTERN, Stop date : 03/01/18 1:44:00 NURSE INTERN Start Date: 03/01/18 Stop Date: 03/01/18 Status: Completed Lactated Ringers (Bolus) IV 1,000 mL, 1,000 ml/hr, Infuse Over: 1 hr, Route: IV, 1,000, Drug form: INJ, ONCE , Dosing Weight 64.091 kg, Start date: 02/28/18 15:01:00 NURSE INTERN, Stop date: 8 15:01:00 NURSE INTERN Start Date: 02/28/18 Stop Date: 02/28/18 Status: Discontinued Lactated Ringers Injection IV (ANES) 1000 mL Route: IV, Total Volume: 1,000, Start date: 02/28/18 17:19:00 NURSE INTERN, Stop date: 18:19:00 NURSE INTERN Start Date: 02/28/18 Stop Date: 02/28/18 Status: Completed Lactated Ringers Injection IV 1,000 mL 1,000 mL, Rate: 125 ml/hr, Infuse over: 8 hr, Route: IV, Dosing Weight 64.091 kg , Total Volume: 1,000, Start date: 02/28/18 15:01:00 NURSE INTERN, Duration: 30 day, Stop date: 03/30/18 15:00:00 NURSE INTERN, 1.66, m2 Start Date: 02/28/18 Stop Date: 02/28/18 Status: Discontinued Lactated Ringers IV 1,000 mL 1,000 mL, Rate: 100 ml/hr, Infuse over: 10 hr, Route: IV, Dosing Weight 64.091 k g, Total Volume: 1,000, Start date: 02/28/18 19:31:00 NURSE INTERN, Duration: 30 day, Sto p date: 03/30/18 19:30:00 NURSE INTERN, 1.66, m2 Start Date: 02/28/18 Stop Date: 03/01/18 Status: Discontinued lanolin topical cream 1 appl, Route: TOP, PRN, Drug form: OINT, PRN Other -See Comment, Start date: 19:31:00 NURSE INTERN, Duration: 30 day, Stop date: 03/30/18 19:30:00 NURSE INTERN Start Date: 02/28/18 Stop Date: 03/04/18 Status: Discontinued meperidine 12.5 mg, 0.25 mL, Route: IVP, Drug form: INJ, ONCE, Dosing Weight 64.091, kg, St art date: 02/28/18 20:13:00 NURSE INTERN, Stop date: 02/28/18 20:13:00 NURSE INTERN Notes: (Same as: Demerol) "Use Precaution in Elderly, Seizure disorders, and Re nal impairment" Start Date: 02/28/18 Stop Date: 03/08/18 Status: Discontinued metFORMIN PO, 0 Refill(s) Start Date: 02/28/18 Stop Date: 03/03/18 Status: Discontinued methylergonovine 0.2 mg, 1 mL, Route: IM, Drug form: INJ, ONCALL, Dosing Weight 64.091, kg, Start date: 02/28/18 16:00:00 NURSE INTERN, Duration: 30 day, Stop date: 03/30/18 15:59:00 NURSE INTERN Notes: (Same as:Methergine) Start Date: 02/28/18 Stop Date: 02/28/18 Status: Discontinued metoclopramide 10 mg, 2 mL, Route: IVP, Drug form: INJ, Q6H, Dosing Weight 64.091, kg, PRN Naus ea & Vomiting, Start date: 02/28/18 15:01:00 NURSE INTERN, Duration: 30 day, Stop date: 03/30/18 15:00:00 NURSE INTERN Notes: (Same as: Reglan) Start Date: 02/28/18 Stop Date: 02/28/18 Status: Discontinued metoclopramide (ANES) Route: IV, Drug form: INJ, ONCE, Stop date: 02/28/18 18:14:00 NURSE INTERN Start Date: 02/28/18 Stop Date: 02/28/18 Status: Completed misoprostol 1,000 microgram, 5 tab, Route: NY, Drug form: TAB, ONCALL, Dosing Weight 64.091, kg, Start date: 02/28/18 16:00:00 NURSE INTERN, Duration: 30 day, Stop date: 03/30/18 15 :59:00 NURSE INTERN Notes: (Same as:Cytotec) Take with food Start Date: 02/28/18 Stop Date: 02/28/18 Status: Completed morphine Sulfate 2 mg, 0.5 mL, Route: IVP, Drug form: SOLN, Q2H, Dosing Weight 64.091, kg, PRN Pa in Score 7-10, Start date: 02/28/18 15:01:00 NURSE INTERN, Duration: 30 day, Stop date: 0 03/30/18 15:00:00 NURSE INTERN Notes: (Same as:MORPhine Sulfate) Start Date: 02/28/18 Stop Date: 02/28/18 Status: Discontinued morphine Sulfate (ANES) Route: INTRATHECAL, Drug form: INJ, ONCE, Stop date: 02/28/18 18:49:00 NURSE INTERN Start Date: 02/28/18 Stop Date: 02/28/18 Status: Completed naloxone 0.4 mg, 1 mL, Route: IVP, Drug form: INJ, ONCALL, Dosing Weight 64.091, kg, Star t date: 02/28/18 19:00:00 NURSE INTERN, Duration: 24 hr, Stop date: 03/01/18 18:59:00 NURSE INTERN Notes: Same as Narcan Start Date: 02/28/18 Stop Date: 03/04/18 Status: Discontinued ondansetron 4 mg, 2 mL, Route: IVP, Drug form: INJ, Q6H, Dosing Weight 64.091, kg, PRN Nause a & Vomiting, Start date: 02/28/18 18:09:00 NURSE INTERN, Duration: 24 hr, Stop date: 03/01/18 18:08:00 NURSE INTERN Notes: (Same as: Ethel) MEDICATION WASTE Product Size: 4 mgProduct Was ivy: ___ mg Start Date: 02/28/18 Stop Date: 03/01/18 Status: Completed ondansetron 4 mg, 2 mL, Route: IVP, Drug form: INJ, Q8H, Dosing Weight 64.091, kg, PRN Nause a & Vomiting, Start date: 02/28/18 15:01:00 NURSE INTERN, Duration: 30 day, Stop date: 03/30/18 15:00:00 NURSE INTERN Notes: (Same as: Ethel) MEDICATION WASTE Product Size: 4 mgProduct Was ivy: ___ mg Start Date: 02/28/18 Stop Date: 02/28/18 Status: Discontinued ondansetron (ANES) Route: IV, Drug form: INJ, ONCE, Stop date: 02/28/18 18:14:00 NURSE INTERN Start Date: 02/28/18 Stop Date: 02/28/18 Status: Completed oxyCODONE 5 mg immediate release 5 mg, 1 tab, Route: PO, Drug form: TAB, Q4H, Dosing Weight 64.091, kg, PRN Pain Score 4-6, Start date: 02/28/18 18:09:00 NURSE INTERN, Duration: 30 day, Stop date: 03/30 18:08:00 NURSE INTERN Notes: (Same as: Roxicodone) Start Date: 02/28/18 Stop Date: 03/04/18 Status: Discontinued oxytocin 30 units in NS 500ml (Titrate) IV 30 unit 30 unit, 500 mL, Rate: 42 ml/hr, Infuse over: 11.9 hr, Dosing Weight 64.091, kg, Route: IV, Total Volume: 500 mL, Start date: 02/28/18 19:31:00 NURSE INTERN, Duration: 2 day, Stop date: 03/02/18 19:30:00 NURSE INTERN, Replace Every: 11.9 hr Start Date: 02/28/18 Stop Date: 03/02/18 Status: Completed oxytocin 30 units in NS 500ml (Titrate) IV 30 unit 30 unit, 500 mL, Rate: 42 ml/hr, Infuse over: 11.9 hr, Dosing Weight 64.091, kg, Route: IV, Total Volume: 500 mL, Start date: 02/28/18 15:01:00 NURSE INTERN, Duration: 1 doses or times, Stop date: 03/01/18 2:54:00 NURSE INTERN, Replace Every: 11.9 hr Start Date: 02/28/18 Stop Date: 02/28/18 Status: Completed penicillin G potassium 2,500,000 unit, 50 mL, Route: IVPB, Drug form: INJ, ABXQ4H, Dosing Weight 64.091 , kg, Start date: 02/28/18 20:00:00 NURSE INTERN, Duration: 30 day, Stop date: 03/30/18 1 6:00:00 NURSE INTERN Start Date: 02/28/18 Stop Date: 03/02/18 Status: Discontinued penicillin G potassium 5,000,000 units injection 5,000,000 unit, Route: IVPB, Drug form: PDR/INJ, ONCALL, Dosing Weight 64.091, k g, Start date: 02/28/18 16:00:00 NURSE INTERN, Duration: 30 day, Stop date: 03/30/18 15:5 9:00 NURSE INTERN Notes: (Same as: Pfizerpen) MEDICATION WASTE Product Size: 5,000,000 un itProduct Wasted: ___ unit Start Date: 02/28/18 Stop Date: 02/28/18 Status: Completed phenylephrine (ANES) Route: IV, Drug form: INJ, ONCE, Stop date: 02/28/18 18:34:00 NURSE INTERN Start Date: 02/28/18 Stop Date: 02/28/18 Status: Completed Pitocin (ANES) + sodium chloride (ANES) 9 mL Route: IVP, Drug form: INJ, ONCE, Stop date: 02/28/18 19:04:00 NURSE INTERN Start Date: 02/28/18 Stop Date: 02/28/18 Status: Completed Pitocin (ANES) 30 unit + Route: IVPB, Drug form: SOLN, Dosing Weight 64.1, kg, Start date: 02/28/18 18:28 :00 NURSE INTERN, Stop date: 02/28/18 19:28:00 NURSE INTERN Start Date: 02/28/18 Stop Date: 02/28/18 Status: Completed Multivitamins oral tablet 1 tab, Route: PO, Drug Form: TAB, Dosing Weight 64.091, kg, Daily, Start date: 9:00:00 NURSE INTERN, Duration: 30 day, Stop date: 03/30/18 9:00:00 NURSE INTERN Start Date: 03/01/18 Stop Date: 03/04/18 Status: Discontinued promethazine 6.25 mg, 0.25 mL, Route: IVPB, Drug form: INJ, Q6H, Dosing Weight 64.091, kg, [place] N Nausea & Vomiting, Start date: 02/28/18 18:09:00 NURSE INTERN, Duration: 24 hr, Stop date: 03/01/18 18:08:00 NURSE INTERN Notes: Do not give IV push. (Same as: Phenergan) Start Date: 02/28/18 Stop Date: 03/01/18 Status: Completed Saline Flush 0.9% 10 ml, Route: IVP, Drug Form: INJ, Dosing Weight 64.091, kg, PRN, PRN Line Flush , Start date: 02/28/18 19:31:00 NURSE INTERN, Duration: 30 day, Stop date: 03/30/18 19:30 :00 NURSE INTERN Notes: (Same as: BD Posiflush) Start Date: 02/28/18 Stop Date: 03/04/18 Status: Discontinued Saline Flush 0.9% 10 ml, Route: IVP, Drug Form: INJ, Dosing Weight 64.091, kg, Q12H, Start date: 21:00:00 NURSE INTERN, Duration: 30 day, Stop date: 03/30/18 9:00:00 NURSE INTERN Notes: (Same as: BD Posiflush) Start Date: 02/28/18 Stop Date: 03/04/18 Status: Discontinued simethicone 160 mg, 2 tab, Route: PO, Drug form: CHEWTAB, Q8H, Dosing Weight 64.091, kg, PRN Gas, Start date: 02/28/18 19:31:00 NURSE INTERN, Duration: 30 day, Stop date: 03/30/18 9:30:00 NURSE INTERN Notes: (Same as: Mylicon) Start Date: 02/28/18 Stop Date: 03/04/18 Status: Discontinued sodium citrate (ANES) Route: PO, Drug Form: INJ, ONCE, Stop date: 02/28/18 18:14:00 NURSE INTERN Start Date: 02/28/18 Stop Date: 02/28/18 Status: Completed terbutaline 0.25 mg, 0.25 mL, Route: SUB-Q, Drug form: INJ, ONCALL, Dosing Weight 64.091, kg , PRN Other -See Comment, Start date: 02/28/18 15:01:00 NURSE INTERN, Duration: 1 doses o r times, Stop date: 03/01/18 0:00:00 NURSE INTERN Notes: DO NOT USE IN EXERCISE TEACHER AREA(Same As: Brethine) Start Date: 02/28/18 Stop Date: 02/28/18 Status: Discontinued Tylenol 650 mg, 2 tab, Route: PO, Drug form: TAB, Q4H, Dosing Weight 64.091, kg, PRN Oth er -See Comment, Start date: 03/01/18 18:01:00 NURSE INTERN, Duration: 30 day, Stop date: 03/31/18 18:00:00 NURSE INTERN Notes: Do not exceed 4 gm/day. (Same as: Tylenol) Start Date: 03/01/18 Stop Date: 03/04/18 Status: Discontinued zolpidem 5 mg, 1 tab, Route: PO, Drug form: TAB, Bedtime, Dosing Weight 64.091, kg, PRN I nsomnia, Start date: 02/28/18 19:31:00 NURSE INTERN, Duration: 30 day, Stop date: 9 19:30:00 NURSE INTERN Notes: (Same As: Osvaldo) Start Date: 02/28/18 Stop Date: 03/04/18 Status: Discontinued Results Most recent to 1 2 oldest [Reference Range]: Neutrophils # 6.1 K/CMM [1.5-8.1 K/CMM] (02/28/18 3:13 PM) Lymphocytes # 2.1 K/CMM [1.0-5.5 K/CMM] (02/28/18 3:13 PM) Monocytes # [0.0-0.8 0.8 K/CMM K/CMM] (02/28/18 3:13 PM) ABO/Rh O POS *Unknown* (02/28/18 3:13 PM) Antibody Scrn Negative (02/28/18 3:13 PM) Basophils [0.0-1.0 0.3 % %] (02/28/18 3:13 PM) Eosinophils [0.0-4.0 0.4 % %] (02/28/18 3:13 PM) Hep Bs Ag [Negative] Negative *NA* (02/28/18 3:13 PM) Hct [36.0-48.0 %] 28.7 % 34.2 % *LOW* *LOW* (03/01/18 6:12 AM) (02/28/18 3:13 PM) Hgb [12.0-16.0 g/dL] 9.9 g/dL 11.7 g/dL *LOW* *LOW* (03/01/18 6:12 AM) (02/28/18 3:13 PM) Lymphocytes 23.4 % [20.0-40.0 %] (02/28/18 3:13 PM) MCH [27.0-31.0 pg] 31.4 pg *HI* (02/28/18 3:13 PM) MCHC [32.0-36.0 34.2 g/dL g/dL] (02/28/18 3:13 PM) MCV [80.0-98.0 fL] 91.6 fL (02/28/18 3:13 PM) Monocytes [2.0-12.0 8.8 % %] (02/28/18 3:13 PM) MPV [7.4-10.4 fL] 9.3 fL (02/28/18 3:13 PM) Platelet [133-450 237 K/CMM K/CMM] (02/28/18 3:13 PM) Segs [45.0-75.0 %] 67.1 % (02/28/18 3:13 PM) RBC [4.20-5.40 3.74 M/CMM M/CMM] *LOW* (02/28/18 3:13 PM) RDW [11.5-14.5 %] 13.1 % (02/28/18 3:13 PM) WBC [3.7-10.4 K/CMM] 9.1 K/CMM (02/28/18 3:13 PM) HIV. [Negative] Negative *NA* (02/28/18 3:13 PM) Treponemal Ab Non-Reactive [Non-Reactive] *NA* (02/28/18 3:13 PM) Immunizations Given and Recorded Vaccine Date Status Refusal Reason diphtheria/pertussis, acel/tetanus adult 03/01/18 Given Procedures Procedure Date Related Diagnosis Body Site Status Cervical cytology screening 11/2015 Completed Social History Social History Type Response Substance Abuse Use: None. Sexual Sexually active: Yes. Exercise Exercise duration: 0. Employment/School Status: Employed. 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 Alcohol Never Smoking Status Never smoker; Ready to change: No; Concerns about tobacco use in household: No; Exposure to Tobacco Smoke None; Cigarette Smoking Last 365 Days No; Reg Smoking Cessation Counseling No entered on: 02/28/18 Assessment and Plan Extracted from: Title: OB Progress Note Author: Jeanine Hodges MD Date: 03/04/18 Impression and Plan Diagnosis Transverse or oblique presentation, delivered ([id number] O32.2XX0, Working, Medical). premature rupture of membranes (PPROM) delivered, current hospitalization (XHP16-NV O42.919, Working, Medical). Diabetes mellitus, gestational (KUA50-JV O24.419, Working, Medical). Delivery by section for breech presentation (SNW90-OG O32.1XX0, Working, Medical). 34 weeks gestation of (ZVD42-MV Z3A.34, Working, Medical). Condition: Stable. Plan 1. /postop state: - Continue routine /postop care - Encourage breast feed/pump Q2-3 hours - continue regular diet, PO pain meds today - encourage ambulation 2. Anemia - continue PO iron with stool softener 3. A2DM - 2hr GTT at 6-8 weeks Discharge to home today, follow up in office in 1-2 weeks. Extracted from: Title: OB C/S Delivery Procedure Author: Aminata Wright MD Date: 02/28/18 Summary transverse, atony Impression and Plan Diagnosis Transverse or oblique presentation, delivered ([id number]-BT O32.2XX0, Working, Medical). premature rupture of membranes (PPROM) delivered, current hospitalization (RWJ23-KD O42.919, Working, Medical). 34 weeks gestation of (UWO89-BB Z3A.34, Working, Medical). Diabetes mellitus, gestational (CFK39-ZW O24.419, Working, Medical). Delivery by section for breech presentation (JTU67-MH O32.1XX0, Working, Medical). disposition: Well baby nursery. Maternal condition: Stable. Course: Progressing as expected.
[2018-10-08] MEDS ORDERED: ONDANSETRON HCL INJ 2MG/ML 2ML 2 MG/ML VIAL IV STA (04:29)
[2018-10-08] MEDS ORDERED: SODIUM CHLORIDE 0.9% 1000ML 1,000 ML IV SCH (04:30)
[2018-10-08] MEDS ORDERED: ONDANSETRON HCL INJ 2MG/ML 2ML 2 MG/ML VIAL ONE (04:31)
[2018-10-08] MEDS ORDERED: SODIUM CHLORIDE 0.9% 1000ML 1,000 ML ONE (04:31)
[2018-10-08] MEDS ORDERED: FAMOTIDINE 20 MG/2 ML VIAL IV STA (05:04)
[2018-10-08] MEDS ORDERED: SODIUM CHLORIDE 0.9% 50ML 50 ML ONE (05:05)
[2018-10-08] MEDS ORDERED: IOPAMIDOL 370 MG/ML 200 ML INFUS..BTL INJ ONE (05:05)
[2018-10-08] MEDS ORDERED: FAMOTIDINE 20 MG/2 ML VIAL IV ONE (05:09)
[2018-10-08] MEDS ORDERED: MORPHINE SULFATE INJ 4 MG/ML INJ 1ML ONE (05:09)
[2018-10-08] MEDS ORDERED: MORPHINE SULFATE INJ 4 MG/ML INJ 1ML IV ONE (05:15)
--- NOTE | 2018-10-08 05:50 | Diagnostic Imaging Report ---
EXAM: CT Abdomen and Pelvis WITH contrast INDICATION: Upper abdominal pain radiating to the back. COMPARISON: None. TECHNIQUE: Abdomen and pelvis were scanned utilizing a multidetector helical scanner from the lung base to the pubic symphysis after administration of IV contrast. Coronal and sagittal reformations were obtained. Routine protocol was performed. Scan was performed when during portal venous phase. IV CONTRAST: 100 cc of Isovue 300 ORAL CONTRAST: Water RADIATION DOSE: Total DLP: 673.37 mGy*cm Estimated effective dose: (DLP x 0.015 x size factor) mSv COMPLICATIONS: None FINDINGS: LINES and TUBES: None. LOWER THORAX: Small hiatal hernia. The lung bases are clear. HEPATOBILIARY: The liver is mild diffuse hypodense compared to the spleen, consistent with diffuse hepatic diffuse hepatic steatosis. No focal hepatic lesions. No biliary ductal dilation. GALLBLADDER: 1.5 cm partially calcified gallstone in the gallbladder neck. No wall thickening. No pericholecystic fluid. SPLEEN: No splenomegaly. PANCREAS: No focal masses or ductal dilatation. ADRENALS: No adrenal nodules KIDNEYS/URETERS: Kidneys enhance symmetrically. No hydronephrosis. No cystic or solid mass lesions. No stones. GI TRACT: Mild diffuse gastric wall thickening is likely related to underdistention. No abnormal distention, or evidence of bowel obstruction. Appendix is normal. PELVIC ORGANS/BLADDER: Unremarkable. LYMPH NODES: No lymphadenopathy. VESSELS: Unremarkable. PERITONEUM / RETROPERITONEUM: No free air or fluid. BONES: Unremarkable. SOFT TISSUES: Diastases of the rectus abdominal muscle in the infraumbilical region. IMPRESSION: 1. Cholelithiasis without CT evidence of cholecystitis. 2. Question of mild gastritis versus under distention. Signed by: Dr. Kenna Laams M.D. on 10/08/2018 5:47 AM
[2018-10-08 06:20] VITALS: BP 132/70
== END 2018-10-08 06:40 | disposition home or self-care (01) ==
LOC: FSED 03:34
DX: R10.11 Right upper quadrant pain (principal); R10.12 Left upper quadrant pain; R10.13 Epigastric pain; R11.2 Nausea with vomiting, unspecified; K80.20 Calculus of gallbladder without cholecystitis without obstruction; K29.00 Acute gastritis without bleeding
CPT/HCPCS: 74177; 80053; 80076; 81003; 81025; 85025; 96374; 96375; 99284; J2270; J2405; J7030; Q9967